=== PATIENT | male | born 1940 | race Caucasian/White ===

== ENCOUNTER 2018-09-22 09:08 | Emergency (ER) | payer OTHER, BC ==
[2018-09-22 09:45] LABS: Absolute Lymphocytes (CBC) 0.6 K/uL (0.7-4.9); Absolute Monocytes 0.4 K/uL (0.1-1.3); Absolute Neutrophil 8.6 K/uL (1.8-8.0); Basophils % 0.2 % (0-1.3); Eosinophils % 0.1 % (0-4.4); Hematocrit 44.8 % (39.6-49.0); Lymphocytes % 5.9 % (15.3-44.8); MPV 9.4 fL (7.6-11.3); RBC Red Blood Cell Count 4.91 M/uL (4.33-5.43)
[2018-09-22] MEDS ORDERED: ONDANSETRON 4 MG/2 ML VIAL ONE ×2 (10:00→11:46)
[2018-09-22] MEDS ORDERED: FAMOTIDINE 20 MG/2 ML VIAL IV ONE (10:00)
[2018-09-22 10:10] LABS: ALT/SGPT 25 U/L (12-78); AST/SGOT 28 U/L (15-37); Alkaline Phosphatase 41 U/L (45-117); BUN Blood Urea Nitrogen 17 mg/dL (7-18); Bicarbonate 26 mmol/L (21-32); Bilirubin Direct 0.2 mg/dL (0-0.2); Bilirubin Total 0.6 mg/dL (0.2-1.0); Glucose Level 145 mg/dL (74-106); Lipase 97 U/L (73-393); Magnesium 1.8 mg/dL (1.8-2.4); Potassium 3.9 mmol/L (3.5-5.1); Protein, Total 7.2 g/dL (6.4-8.2); Sodium Level 141 mmol/L (136-145); Troponin (Emerg Dept Use Only) < 0.02 ng/mL (0.0-0.045)
[2018-09-22 10:27] LABS: Blood Morphology Comment NOT SEEN (NOT SEEN); Platelet Estimate ADEQ; Urine White Blood Cell Casts OK
--- NOTE | 2018-09-22 10:28 | RAD REPORT ---
EXAM DESCRIPTION: RAD - Chest Single View - 09/22/2018 9:58 am CLINICAL HISTORY: vomiting Chest pain. COMPARISON: No comparisons FINDINGS: Portable technique limits examination quality. Linear subsegmental atelectasis is present in the left lung base. The lungs are otherwise clear. The heart is upper limit normal in size. Old left posterior rib fracture seen. IMPRESSION: Linear subsegmental atelectasis in the left lung base.
[2018-09-22] MEDS ORDERED: MORPHINE 4 MG/ML SYR ONE (10:30)
--- NOTE | 2018-09-22 10:49 | RAD REPORT ---
EXAM DESCRIPTION: CTAbdomen Pelvis W Contrast - 09/22/2018 10:32 am CLINICAL HISTORY: Abdominal pain. N/V;Abd pain COMPARISON: No comparisons TECHNIQUE: Biphasic CT imaging of the abdomen and pelvis was performed with 100 ml non-ionic IV cont rast. All CT scans are performed using dose optimization technique as appropriate and may include automated exposure control or mA/KV adjustment according to patient size. FINDINGS: Poorly defined linear opacities are present in the posterior left lung base likely represe nting atelectasis or developing infiltrate.Small hiatal hernia is present. Several low-density liver lesions are present, incompletely assessed but likely benign cysts. No aggr essive liver mass suspected. Cholecystectomy clips are noted. The spleen, pancreas, adrenal glands ar e normal. Small right renal cysts are present. Left kidney shows no hydronephrosis. No bowel obstruction, free air, free fluid or abscess. Sigmoid diverticulosis is present without dive rticulitis. The appendix is not identified as a discrete structure, however, no secondary findings of appendicitis are identified. No evidence of significant lymphadenopathy. Prostate radiation beads are seen. Moderate lower lumbar spondylosis. IMPRESSION: Ill-defined opacities in the posterior left base suspected represent atelectasis or deve loping pneumonia. Sigmoid diverticulosis without diverticulitis.
[2018-09-22] MEDS ORDERED: NA CHLORIDE 0.9% 500 ML ONE (11:45)
[2018-09-22] MEDS ORDERED: LIDOCAINE VISCOUS 2% SOLN 15 ML UDC ONE (11:46)
[2018-09-22] MEDS ORDERED: MAGNE/ALUM HYDROXD 30 ML UCUP ONE (11:46)
--- NOTE | 2018-09-22 13:21 | EDPHYS ---
Physician Documentation [facility] Name: Troy Ridley Age: 78 yrs Sex: Male : 1940 Arrival Date: 09/22/2018 Time: 09:12 Bed 8 Private MD: out of town, doctor ED Physician Reynold Ogden HPI: 09/22 09:23 This 78 yrs old Male presents to ER via Unassigned with complaints of cp Vomiting. 09:23 The patient presents to the emergency department with nausea, with "dry heaves", cp vomiting, that is continuous. Onset: The symptoms/episode began/occurred last night. Possible causes: bad food exposure, fish. Historical: - Allergies: 09:35 No Known Allergies; iw - Home Meds: 09:35 Simvastatin Oral [Active]; losartan oral oral [Active]; iw - PMHx: 09:35 Hypertension; Hyperlipidemia; iw - PSHx: 09:35 Cholecystectomy; iw - Immunization history:: Adult Immunizations up to date. - Social history:: Smoking status: Patient/guardian denies using tobacco. - Ebola Screening: : Patient negative for fever greater than or equal to 101.5 degrees Fahrenheit, and additional compatible Ebola Virus Disease symptoms Patient denies exposure to infectious person Patient denies travel to an Ebola-affected area in the 21 days before illness onset No symptoms or risks identified at this time. ROS: 09:25 Eyes: Negative for injury, pain, redness, and discharge. cp 09:25 Constitutional: Negative for body aches, chills, fever, poor PO intake. 09:25 ENT: Negative for drainage from ear(s), ear pain, sore throat, difficulty swallowing, difficulty handling secretions. 09:25 Cardiovascular: Negative for chest pain, edema, palpitations. 09:25 Respiratory: Negative for cough, shortness of breath, wheezing. 09:25 Abdomen/GI: Positive for abdominal pain, nausea, vomiting, Negative for diarrhea, constipation, anorexia, hematemesis, black/tarry stool, rectal bleeding. 09:25 Back: Negative for pain at rest, pain with movement, radiated pain. 09:25 Skin: Negative for cellulitis, rash. 09:25 Neuro: Negative for altered mental status, dizziness, headache, weakness. 09:25 All other systems are negative. Exam: 09:32 Constitutional: The patient appears in no acute distress, alert, awake, cp non-diaphoretic, non-toxic, well developed, well nourished. 09:32 Head/Face: Normocephalic, atraumatic. cp 09:32 Eyes: Periorbital structures: appear normal, Conjunctiva: normal, no exudate, no injection, Sclera: no appreciated abnormality, Lids and lashes: appear normal, bilaterally. 09:32 ENT: External ear(s): are unremarkable, Nose: is normal, Mouth: Lips: moist, Oral mucosa: moist, Posterior pharynx: is normal, airway is patent, no erythema, no exudate. 09:32 Chest/axilla: Inspection: normal, Palpation: is normal, no crepitus, no tenderness. 09:32 Cardiovascular: Rate: normal, Rhythm: regular, Heart sounds: murmur, not appreciated, Edema: is not appreciated, JVD: is not appreciated. 09:32 Respiratory: the patient does not display signs of respiratory distress, Respirations: normal, no use of accessory muscles, no retractions, no splinting, no tachypnea, labored breathing, is not present, Breath sounds: are clear throughout, no decreased breath sounds, no stridor, no wheezing. 09:32 Abdomen/GI: Inspection: abdomen appears normal, Bowel sounds: active, all quadrants, Palpation: abdomen is soft and non-tender, in all quadrants, rebound tenderness, is not appreciated, voluntary guarding, is not appreciated, involuntary guarding, is not appreciated. 09:32 Back: pain, is absent, ROM is normal. 09:32 Skin: cellulitis, is not appreciated, no rash present. 09:59 ECG was reviewed by the Attending Physician. cp Vital Signs: 09:35 BP 136 / 81; Pulse 72; Resp 16; Temp 97.6; Pulse Ox 98% on R/A; Pain 0/10; iw 10:37 BP 143 / 76; Pulse 60; Resp 18; Pulse Ox 98% on R/A; ca1 11:45 BP 145 / 79; Pulse 63; Resp 18; Pulse Ox 96% on R/A; ca1 12:35 BP 135 / 83; Pulse 69; Resp 18; Pulse Ox 100% on R/A; ca1 13:15 BP 137 / 79; Pulse 67; Resp 18; Pulse Ox 100% on R/A; ca1 MDM: 09:16 Patient medically screened. cp 11:05 Data reviewed: vital signs, nurses notes, lab test result(s), EKG, radiologic studies, cp CT scan. 09/22 09:23 Order name: Basic Metabolic Panel; Complete Time: 10:12 cp 09/22 10:30 Interpretation: Normal except: GLUC 145; GFR 67; CA 10.4. 09/22 09:23 Order name: CBC with Diff; Complete Time: 10:29 09/22 10:29 Interpretation: Normal except: CHUCK% 89.8; LYM% 5.9; NEUT A 8.6; LYMA 0.6. 09/22 09:23 Order name: Creatinine for Radiology; Complete Time: 10:12 09/22 09:23 Order name: Hepatic Function; Complete Time: 10:12 cp 09/22 09:23 Order name: Lipase; Complete Time: 10:12 09/22 09:23 Order name: Troponin (emerg Dept Use Only); Complete Time: 10:12 09/22 09:23 Order name: XRAY Chest (1 view); Complete Time: 11:00 cp 09/22 09:23 Order name: Magnesium; Complete Time: 10:12 09/22 09:46 Order name: CBC Smear Scan; Complete Time: 10:29 EDMS 09/22 10:13 Order name: CT Abd/Pelvis - W/Contrast: no oral contrast; Complete Time: 11:00 09/22 11:01 Interpretation: Report reviewed. 09/22 09:23 Order name: IV Saline Lock; Complete Time: 09:40 cp 09/22 09:23 Order name: Labs collected and sent; Complete Time: 09:40 cp 09/22 09:23 Order name: EKG; Complete Time: 09:23 cp 09/22 09:23 Order name: EKG - Nurse/Tech; Complete Time: 09:51 cp 09/22 11:19 Order name: PO challenge; Complete Time: 11:34 cp EC:59 Rate is 68 beats/min. Rhythm is regular. PA interval is prolonged at 218 msec. QRS cp interval is prolonged at 106 msec. QT interval is normal. Interpreted by me. Reviewed by me. Administered Medications: 09:42 Drug: Zofran 4 mg Route: IVP; Site: left antecubital; ca1 11:46 Follow up: Response: No adverse reaction; Nausea is decreased ca1 09:45 Drug: Pepcid 20 mg Route: IVP; Site: left antecubital; ca1 11:46 Follow up: Response: No adverse reaction ca1 10:20 Drug: morphine 2 mg Route: IVP; Site: left antecubital; ca1 12:00 Follow up: Response: No adverse reaction; Pain is decreased ca1 11:35 Drug: Zofran 4 mg Route: IVP; Site: left antecubital; ca1 13:00 Follow up: Response: No adverse reaction; Nausea is decreased ca1 11:38 Drug: NS 0.9% 500 ml Route: IV; Rate: bolus; Site: left antecubital; ca1 12:30 Follow up: Response: No adverse reaction; IV Status: Completed infusion ca1 11:50 Drug: GI Cocktail without - (Maalox Suspension 30 ml, Lidocaine Liquid 2 % 15 ca1 ml) Route: PO; 13:43 Follow up: Response: No adverse reaction ca1 Disposition: 09/22/18 13:20 Discharged to Home. Impression: Nausea and vomiting. - Condition is Stable. - Discharge Instructions: Dehydration, Adult, Clear Liquid Diet, Adult, Nausea and Vomiting, Adult. - Prescriptions for Bentyl 20 mg Oral Tablet - take 1 tablet by ORAL route every 6 hours As needed; 20 tablet. Pepcid 20 mg Oral Tablet - take 1 tablet by ORAL route every 12 hours for 10 days; 20 tablet. Zofran 4 mg Oral Tablet - take 1 tablet by ORAL route every 12 hours As needed; 20 tablet. - Medication Reconciliation Form, Thank You Letter, Antibiotic Education, Prescription Opioid Use form. - Follow up: Private Physician; When: 1 - 2 days; Reason: Recheck today's complaints. - Problem is new. - Symptoms have improved. Addendum: 09/27/2018 03:37 Co-signature as Attending Physician, Reynold Ogden MD Available for consultation at p s1 all times . Signatures: Dispatcher [employer] Candy Porras RN RN iw Rodrigo Jarrett PA PA cp Singer, Phillip, MD MD ps1 Iesha Szymanski RN RN ca1 Corrections: (The following items were deleted from the chart) 09/22 10:29 10:29 Normal except: CHUCK% 89.8; LYM% 5.9; NEUT A 8.6. cp cp 10:30 10:30 Normal except: GLUC 145; GFR 67. cp cp 13:41 13:20 09/22/2018 13:20 Discharged to Home. Impression: Nausea and vomiting. Condition ca1 is Stable. Forms are Medication Reconciliation Form, Thank You Letter, Antibiotic Education, Prescription Opioid Use. Follow up: Private Physician; When: 1 - 2 days; Reason: Recheck today's complaints. Problem is new. Symptoms have improved. cp
--- NOTE | 2018-09-22 13:21 | ER ---
Nurse's Notes [facility] Name: Troy Ridley Age: 78 yrs Sex: Male : 1940 Arrival Date: 09/22/2018 Time: 09:12 Bed 8 Private MD: out of town, doctor Diagnosis: Nausea and vomiting Presentation: 09/22 09:32 Presenting complaint: Patient states: thinks he ate something bad yesterday, has had iw several episodes of vomiting since last night, had abd cramping last night, feels better after vomiting. Transition of care: patient was not received from another setting of care. Onset of symptoms was September 21, 2018. Risk Assessment: Do you want to hurt yourself or someone else? Patient reports no desire to harm self or others. Initial Sepsis Screen: Does the patient meet any 2 criteria? No. Patient's initial sepsis screen is negative. Does the patient have a suspected source of infection? No. Patient's initial sepsis screen is negative. Care prior to arrival: None. 09:32 Method Of Arrival: Ambulatory iw 09:32 Acuity: KENISHA 3 iw Triage Assessment: 09:45 GI: Reports vomiting. ca1 Historical: - Allergies: 09:35 No Known Allergies; iw - Home Meds: 09:35 Simvastatin Oral [Active]; losartan oral oral [Active]; iw - PMHx: 09:35 Hypertension; Hyperlipidemia; iw - PSHx: 09:35 Cholecystectomy; iw - Immunization history:: Adult Immunizations up to date. - Social history:: Smoking status: Patient/guardian denies using tobacco. - Ebola Screening: : Patient negative for fever greater than or equal to 101.5 degrees Fahrenheit, and additional compatible Ebola Virus Disease symptoms Patient denies exposure to infectious person Patient denies travel to an Ebola-affected area in the 21 days before illness onset No symptoms or risks identified at this time. Screenin:41 Abuse screen: Denies threats or abuse. Denies injuries from another. Nutritional ca1 screening: No deficits noted. Tuberculosis screening: No symptoms or risk factors identified. Fall Risk None identified. Assessment: 09:41 General: Appears in no apparent distress. comfortable, Behavior is calm, cooperative, ca1 appropriate for age. Pain: Denies pain. Pain began Abdominal pain last night but now resolved. Had several episodes of vomiting this morning. Neuro: Level of Consciousness is awake, alert, obeys commands, Oriented to person, place, time, situation. Cardiovascular: Heart tones S1 S2 present Capillary refill < 3 seconds Patient's skin is warm and dry. Respiratory: Airway is patent Trachea midline Respiratory effort is even, unlabored, Respiratory pattern is regular, symmetrical, Breath sounds are clear bilaterally. GI: Abdomen is flat, non-distended, Bowel sounds present X 4 quads. Abd is soft and non tender X 4 quads. Patient currently denies constipation, diarrhea, pain. : No signs and/or symptoms were reported regarding the genitourinary system. EENT: No signs and/or symptoms were reported regarding the EENT system. Derm: Skin is intact, is healthy with good turgor, Skin is pink, warm \T\ dry. Musculoskeletal: Circulation, motion, and sensation intact. Capillary refill < 3 seconds. 09:56 Reassessment: Patient appears in no apparent distress at this time. Patient and/or ca1 family updated on plan of care and expected duration. Pain level reassessed. Patient is alert, oriented x 3, equal unlabored respirations, skin warm/dry/pink. Pt states he wanted to sleep since he hasn't sleep through the night with the abdominal pain. 10:50 Reassessment: Patient appears in no apparent distress at this time. Patient and/or ca1 family updated on plan of care and expected duration. Pain level reassessed. Patient is alert, oriented x 3, equal unlabored respirations, skin warm/dry/pink. patient back from CT. Patient states feeling better. 11:47 Reassessment: Patient appears in no apparent distress at this time. Patient is alert, ca1 oriented x 3, equal unlabored respirations, skin warm/dry/pink. 12:30 Reassessment: Patient appears in no apparent distress at this time. PO challenge ca1 tolerated. He had apple juice and crackers. 13:20 Reassessment: Patient appears in no apparent distress at this time. Patient is alert, ca1 oriented x 3, equal unlabored respirations, skin warm/dry/pink. Vital Signs: 09:35 BP 136 / 81; Pulse 72; Resp 16; Temp 97.6; Pulse Ox 98% on R/A; Pain 0/10; iw 10:37 BP 143 / 76; Pulse 60; Resp 18; Pulse Ox 98% on R/A; ca1 11:45 BP 145 / 79; Pulse 63; Resp 18; Pulse Ox 96% on R/A; ca1 12:35 BP 135 / 83; Pulse 69; Resp 18; Pulse Ox 100% on R/A; ca1 13:15 BP 137 / 79; Pulse 67; Resp 18; Pulse Ox 100% on R/A; ca1 ED Course: 09:12 Patient arrived in ED. dl4 09:13 out of town, doctor is Private Physician. dl4 09:15 Rodrigo Jarrett PA is PHCP. cp 09:15 Reynold Ogden MD is Attending Physician. cp 09:32 Inserted saline lock: 20 gauge in left antecubital area, using aseptic technique. Blood ca1 collected. 09:33 Triage completed. iw 09:35 Arm band placed on. iw 09:40 Iesha Szymanski, RN is Primary Nurse. ca1 09:41 Patient has correct armband on for positive identification. Placed in gown. Bed in low ca1 position. Call light in reach. Side rails up X 1. monitoring and evaluation advisor on. Pulse ox on. NIBP on. Warm blanket given. 09:53 EKG done, by development technical lead. reviewed by Rodrigo CASTILLO. sm3 09:58 XRAY Chest (1 view) In Process Unspecified. EDMS 10:29 CT completed. Patient tolerated procedure well. Patient moved to CT via stretcher. jg6 Patient moved back from CT. 10:33 CT Abd/Pelvis - W/Contrast: no oral contrast In Process Unspecified. EDMS 10:50 Iesha Szymanski, RN is Primary Nurse. ca1 13:30 No provider procedures requiring assistance completed. ca1 13:30 IV discontinued, intact, bleeding controlled, No redness/swelling at site. Pressure ca1 dressing applied. Administered Medications: 09:42 Drug: Zofran 4 mg Route: IVP; Site: left antecubital; ca1 11:46 Follow up: Response: No adverse reaction; Nausea is decreased ca1 09:45 Drug: Pepcid 20 mg Route: IVP; Site: left antecubital; ca1 11:46 Follow up: Response: No adverse reaction ca1 10:20 Drug: morphine 2 mg Route: IVP; Site: left antecubital; ca1 12:00 Follow up: Response: No adverse reaction; Pain is decreased ca1 11:35 Drug: Zofran 4 mg Route: IVP; Site: left antecubital; ca1 13:00 Follow up: Response: No adverse reaction; Nausea is decreased ca1 11:38 Drug: NS 0.9% 500 ml Route: IV; Rate: bolus; Site: left antecubital; ca1 12:30 Follow up: Response: No adverse reaction; IV Status: Completed infusion ca1 11:50 Drug: GI Cocktail without - (Maalox Suspension 30 ml, Lidocaine Liquid 2 % 15 ca1 ml) Route: PO; 13:43 Follow up: Response: No adverse reaction ca1 Outcome: 13:20 Discharge ordered by MD. cp 13:30 Discharged to home ambulatory, with family. ca1 13:30 Condition: stable 13:30 Discharge instructions given to patient, family, Instructed on discharge instructions, follow up and referral plans. medication usage, Demonstrated understanding of instructions, follow-up care, medications, Prescriptions given X 3. 13:41 Patient left the ED. ca1 Signatures: Dispatcher [employer] EDCandy Britton RN RN Rodrigo Garcia PA PA Karen Carroll sm3 Velia [id number] Bong Brush dl4 Iesha Szymanski RN RN ca1 Corrections: (The following items were deleted from the chart) 13:40 13:39 GI: Reports ca1 ca1
--- NOTE | 2018-09-22 18:21 | EKG ---
Test Date: 2018-09-22 Test Time: 09:44:09 Central Services Tech: SYLVIA MEASUREMENT RESULTS: Intervals: Rate: 68 MO: 218 QRSD: 106 QT: 432 QTc: 459 [place]: P: 40 MO: 218 QRS: -7 T: 30 INTERPRETIVE STATEMENTS: Sinus rhythm with 1st degree AV block Otherwise normal ECG No previous ECG available for comparison Electronically Signed On 09-22-18 18:19:26 MENDING CARRIER by Kirill Gilliam
== END 2018-09-22 13:41 | disposition home or self-care (01) ==
LOC: ER 09:08
DX: R11.2 Nausea with vomiting, unspecified (principal); I44.0 Atrioventricular block, first degree; I10 Essential (primary) hypertension; E78.5 Hyperlipidemia, unspecified; K57.30 Diverticulosis of large intestine without perforation or abscess without bleeding; M47.816 Spondylosis without myelopathy or radiculopathy, lumbar region; Z79.899 Other long term (current) drug therapy
CPT/HCPCS: 36415; 71045; 74177; 80048; 80076; 83690; 83735; 84484; 85025; 93005; 96361; 96374; 96375; 99285; J2405 ×2; Q9967